=== PATIENT | female | born 1995 | race Two or more races ===

== ENCOUNTER 2017-07-30 07:14 | Inpatient (IN) | payer OTHER ==
[2017-07-30 10:26] LABS: APPEARANCE,URINE CLEAR; BILIRUBIN,URINE NEGATIVE (NEGATIVE); COLOR,URINE YELLOW; GLUCOSE, URINE NEGATIVE (NEGATIVE); KETONES,URINE TRACE mg/dL (NEGATIVE); LEUKOCYTE ESTERASE,URINE NEGATIVE (NEGATIVE); NITRITE,URINE NEGATIVE (NEGATIVE); PROTEIN,URINE NEGATIVE (NEGATIVE); URINE SPECIFIC GRAVITY 1.018; UROBILINOGEN,URINE NEGATIVE mg/dL (<2.0)
[2017-07-30 10:46] LABS: URINE AMPHETAMINES SCREEN NEGATIVE; URINE BARBITURATES SCREEN NEGATIVE; URINE BENZODIAZEPINES SCREEN NEGATIVE; URINE COCAINE SCREEN NEGATIVE; URINE MARIJUANA (THC) SCREEN NEGATIVE; URINE METHADONE SCREEN NEGATIVE; URINE PHENCYCLIDINE SCREEN NEGATIVE
[2017-07-30] MEDS ORDERED: MISOPROSTOL 0.2 MG TABLET ONE (10:49)
[2017-07-30] MEDS ORDERED: EPHEDRINE SULFATE INJ 50 MG/1 ML AMPULE ONE (10:50)
[2017-07-30] MEDS ORDERED: FENTANYL/BUPIVACAINE/NS/PF 200 MCG/100 ML RTUINJ EPI ONE (10:50)
[2017-07-30] MEDS ORDERED: LIDOCAINE 1% INJ-PF (10 MG/ML) 30 ML SDV ONE (10:50)
[2017-07-30] MEDS ORDERED: OXYTOCIN/NORMAL SALINE 20 UNIT/1,000 ML RTUINJ ONE (10:50)
[2017-07-30] MEDS ORDERED: BUPIVACAINE HCL 0.25 % INJ/PF (2.5 MG/1 ML) 30 ML VIAL ONE (10:50)
[2017-07-30 11:20] LABS: HEMATOCRIT 35.9 % (36.0-47.0); HEMOGLOBIN 12.5 g/dL (12.0-15.5); MEAN CORPUSCULAR HEMOGLOBIN 33.9 pg (27.0-33.4); MEAN CORPUSCULAR HGB CONC 34.8 g/dL (32.0-36.0); MEAN CORPUSCULAR VOLUME 97 fl (80-97); PLATELET COUNT 195 10^3/uL (150-450); RED BLOOD COUNT 3.69 10^6/uL (3.72-5.28); RED CELL DISTRIBUTION WIDTH 12.6 % (11.5-14.0); WHITE BLOOD COUNT 12.5 10^3/uL (4.0-10.5)
[2017-07-30] MEDS ORDERED: RINGERS SOLUTION,LACTATED 1,000 ML IV PRN (11:45)
[2017-07-30] MEDS ORDERED: RINGERS SOLUTION,LACTATED 1,000 ML IV ONE (11:45)
--- NOTE | 2017-07-30 13:45 | L&D Progress Notes ---
PROGRESS NOTES Datetime Report Generated by CPN: 07/30/2017 13:45 PROGRESS NOTE Impression: Normal Progression of Labor Procedures: Artificial ROM Plan: Continue Present Management Informed Consent Obtained: Vaginal Delivery; Risks, Benefits and Alternatives Discussed Vital Signs : Reviewed; Within Normal Limits Comment: S: reports complete relief of pain with epidural O: VSS, cervix and contractions as stated A: IUP @ 39w1d in labor-stable, progressing, AROM-heavy meconium noted P: anticipate delivery, nursery to be present due to mec stained fluid. VAGINAL EXAM Dilatation: 7 Dilatation: 4 Effacement: 100 Effacement: 90 Station: -1 Station: -2 Contractions: 3-5 Contractions: 3-4 MEMBRANES Membranes: Ruptured Membranes: Bulging Amniotic Fluid Color: Meconium, Heavy FETUS A FHR - Baseline: 120 Monitoring: External US Variability: Moderate 6-25bpm Accelerations: 15X15 Decelerations: None FHR Category: Category I Presentation: Vertex SIGNATURE SIGNATURE: [id number] Assignment: June Ornelas MD Signature: with User ID: [email or web address] : with User ID: [email or web address]
[2017-07-30] MEDS ORDERED: PROMETHAZINE HCL 25 MG SUPP.RECT PR PRN (18:25)
[2017-07-30] MEDS ORDERED: DIPH/PERTUSS(ACELL)/TETANUS VAC/PF 0.5 ML SYR (>=10YO) IM PRN (18:25)
[2017-07-30] MEDS ORDERED: NA PHOS,M-B/NA PHOS,DI-BA (ADULT) 133 ML ENEMA PR PRN (18:25)
[2017-07-30] MEDS ORDERED: OXYTOCIN/NORMAL SALINE 20 UNIT/1,000 ML RTUINJ IV PRN (18:25)
[2017-07-30] MEDS ORDERED: ACETAMINOPHEN WITH CODEINE #3 TABLET PO PRN ×2 (18:25)
[2017-07-30] MEDS ORDERED: PSEUDOEPHEDRINE HCL 30 MG TABLET PO PRN (18:25)
[2017-07-30] MEDS ORDERED: MEASLES,MUMPS&RUBELLA VACC/PF 0.5 ML VIAL SUBCUT PRN (18:25)
[2017-07-30] MEDS ORDERED: GLYCERIN/WITCH HAZEL LEAF 1 EACH MED..PAD TP PRN (18:25)
[2017-07-30] MEDS ORDERED: MAGNESIUM HYDROXIDE SUSP 30 ML UDCUP PO PRN (18:25)
[2017-07-30] MEDS ORDERED: DIPHENHYDRAMINE HCL 25 MG CAPSULE PO PRN (18:25)
[2017-07-30] MEDS ORDERED: BENZOCAINE/MENTHOL AEROSOL SPRAY 56 ML TOP PRN (18:25)
[2017-07-30] MEDS ORDERED: PROMETHAZINE HCL INJ 25 MG/1 ML VIAL IV PRN (18:25)
[2017-07-30] MEDS ORDERED: ACETAMINOPHEN 650 MG SUPP.RECT PR PRN (18:25)
[2017-07-30] MEDS ORDERED: PROMETHAZINE HCL 25 MG TABLET PO PRN (18:25)
[2017-07-30] MEDS ORDERED: DIBUCAINE 1% OINTMENT 28 GM TP PRN (18:25)
[2017-07-30] MEDS ORDERED: ZOLPIDEM TARTRATE 5 MG TABLET PO PRN (18:25)
--- NOTE | 2017-07-30 18:59 | Delivery Summary ---
Del Sum A-C Datetime Report Generated by CPN: 07/30/2017 18:59 DELIVERY PERSONNEL DELIVERY PERSONNEL: [id number] Delivery Doctor:: Alyssia Randhawa CNM Labor and Delivery Nurse:: Charlene Peterson RN Labor and Delivery Nurse:: Clover Noyola RNC Nursery Nurse:: Raisa Gracia RN Cane Feeder/RELATIONSHIP CONSULTANT: Kasey Redding CNA II Cane Feeder/RELATIONSHIP CONSULTANT: F FREDERIC, ST MATERNAL INFORMATION Delivery Anesthesia: Epidural Medications After Delivery: Pitocin Bolus-Please Comment; Pitocin Drip 20 Units/1000ml NSS Estimated Blood Loss (ml): 825 QBL Maternal Complications: None Provider Comments: Pt. progressed to c/c/+1 with urge to push, began pushing and quickly delivered a viable baby boy. spontaneous respiratory effort at and cry with tactile stimulation (nursery nurse in room for delivery due to heavy mec, terminal mec also noted). Short cord noted, baby held by mother and myself at umbilicus to allow for skin to skin while still attached. Cord allowed to stop pulsating then clamped x2 and cut by FOB. Baby to warmer for further eval. Lacerations as stated. Bleeding stable and fundus firm at u-3. Baby to nursery. Mother remains in room and stable at this tie. LABOR SUMMARY EDC: 08/05/2017 00:00 No. Babies in Womb: 1 Attempted: No Labor Anesthesia: Epidural LABOR INFORMATION Reason for Induction: Not Applicable Onset of Labor: 07/30/2017 03:00 Complete Dilatation: 07/30/2017 16:49 Oxytocin: N/A Group B Beta Strep: NEGATIVE Antibiotics # of Doses: 0 Steroids Given: None Reason Steroids Not Administered: Not Applicable MEMBRANES Membranes Rupture Method: Artificial Rupture of Membranes: 07/30/2017 13:38 Length of Rupture (hr): 3.83 Amniotic Fluid Color: Heavy Meconium Amniotic Fluid Amount: Small Amniotic Fluid Odor: None STAGES OF LABOR Stage 1 hr: 13 Stage 1 min: 49 Stage 2 hr: 0 Stage 2 min: 39 Stage 3 hr: 0 Stage 3 min: 5 Total Time in Labor hr: 14 Total Time in Labor min: 33 VAGINAL DELIVERY Episiotomy: None Laceration #1: Vaginal Laceration Extension #1: N/A Other Laceration: SUPERFICIAL RT LABIAL ABRASION Laceration Repair: Yes Laceration Repair Note: superficial midline laceration that woudn't become hemostatic, sutured with 2-0 chromic and hemostasis achieved. Abrasions noted as stated and hemostatic. Sponge Count Correct: N/A Sharps Count Correct: N/A BABY A INFORMATION Infant Delivery Date/Time: 07/30/2017 17:28 Method of Delivery: Vaginal Born in Route : No : N/A Forceps: N/A Vacuum Extraction: N/A Shoulder Dystocia : No PRESENTATION/POSITION BABY A Presentation: Cephalic Cephalic Presentation: Vertex Vertex Position: Left Occipital Anterior Breech Presentation: N/A PLACENTA INFORMATION BABY A Placenta Delivery Time : 07/30/2017 17:33 Placenta Method of Delivery: Spontaneous Placenta Status: Delivered SCORES BABY A Heart Rate 1 min: >100 bpm Resp Effort 1 min: Slow, Irregular Reflex Irritability 1 min: Cough or Sneeze or Pulls Away Muscle Tone 1 min: Active Motion Color 1 min: Blue/Pale Resuscitation Effort 1 min: Tactile Stimulation SCORE 1 MIN: 7 Heart Rate 5 min: >100 bpm Resp Effort 5 min: Good Cry Reflex Irritability 5 min: Cough or Sneeze or Pulls Away Muscle Tone 5 min: Active Motion Color 5 min: Body [place], Extremities Blue Resuscitation Effort 5 min: Tactile Stimulation; Oxygen; PPV/NCPAP SCORE 5 MIN: 9 INFANT INFORMATION BABY A Gestational Age at Delivery: 39.1 Gestational Status: Full Term- 39- 40.6 Weeks Outcome : Liveborn Condition : Stable Sex: Male IDENTIFICATION BABY A Verification Date/Time: 07/30/2017 17:57 ID Band Number: [id number] Mother's Name Verified: Yes RN Verifying Infant: DONN PETERSON, RN Additional Verifying Personnel: D STEFANY, U/S, RELATIONSHIP CONSULTANT WEIGHT/LENGTH BABY A Birthweight (gm): 3438 Infant Weight (lb): 7 Weight (oz): 9 Length (in): 19.00 Infant Length (cm): 48.26 CORD INFORMATION BABY A No. Cord Vessels: 3 Nuchal Cord : N/A Cord Blood Taken: Yes-For Eval (Mom's Blood Type - or O+) Infant Suction: Mouth; Nose ASSESSMENT BABY A Complications: Multiple Variable Decels; Meconium Physical Findings at Delivery: Molding of the Head Respirations: Intercostal Retractions; Nasal Flaring Skin to Skin: Yes Skin to Skin Time (min): 4 Cutting And Boning Supervisor/ALS Called : No Care By: Gretel GRACIA RN Transferred To: [facility] BABY B INFORMATION : N/A SIGNATURES Assignment: June Ornelas MD Signature: with User ID: Brielle : with User ID: [email or web address]
--- NOTE | 2017-07-30 19:51 | Warning Signs in Babies ---
VOD Warning Signs Datetime Report Generated by [facility]: 07/30/2017 19:51 VOD#608 -Warning Signs in Babies: Viewed with Parent(s)/Family (07/30/2017 07:53:Ness Galicia RN)
--- NOTE | 2017-07-30 21:06 | Admission Physical ---
Datetime Report Generated by CPN: 07/30/2017 21:06 CURRENT ADMISSION Hx Assessment: The History has been Reviewed and is Current Chief Complaint: Uterine Contractions Indication for Induction: Not Applicable Indication for Induction: Term, Intrauterine Admit Plan: Admit to Unit; Initiate Labor Protocol ALLERGIES Medication Allergies: Yes Medication Allergies: caffeine (07/30/2017); aspirin (07/30/2017); acetaminophen (07/30/2017) Medication Allergies: EXCEDRIN Latex: No Latex Allergies Food Allergies: NONE Environmental Allergies: NONE OBSTETRICAL HISTORY EDC: 08/05/2017 00:00 : 1 Para: 0 Term: 0 : 0 SAB: 0 IAB: 0 Ectopic: 0 Livin Cesareans: 0 VBACs: 0 Multiple Births: 0 Gestational Diabetes: No Rh Sensitization: No Incompetent Cervix: No ROSITA: No Infertility: No ART Treatment: No Uterine Anomaly: No IUGR: No Hx Previous C/S: No Macrosomia: No Hx Loss/Stillborn: No PIH: No Hx : No Placenta Previa/Abruption: No Depression/PP Depression: Yes PTL/PROM: No Post Hemorrhage: No Current Procedures: Ultrasound Obstetrical History Comments: CURRENT SEE RECORDS Alcohol: No Marijuana : No Cocaine: No Other Illicit Drugs: No Cigarettes: Never Smoker. [id number] MEDICAL HISTORY Diabetes: No Blood Transfusion: No Pulmonary Disease (Asthma, TB): No Breast Disease: No Hypertension: No Clinical Nursing Instructor Surgery: No Heart Disease: No Hosp/Surgery: No Autoimmune Disorder: No Anesthetic Complications: No Kidney Disease: No Abnormal Pap Smear: No Neuro/Epilepsy: No Psychiatric Disorders: Yes Other Medical Diseases: No Hepatitis/Liver Disease: No Significant Family History: No Varicosities/Phlebitis: No Trauma/Violence : No Thyroid Dysfunction: No Medical History Comments: PANIC ATTACKS, ANXIETY, PTSD, DEPRESSION INFECTIOUS HISTORY Gonorrhea: No Genital Herpes: No Chlamydia: No Tuberculosis: No Syphilis: No Hepatitis: No HIV/AIDS Exposure: No Rash or Viral Illness: No HPV: No PHYSICAL EXAM General: Normal HEENT: Deferred Neurologic: Normal Thyroid: Deferred Heart: Normal Lungs: Normal Breast: Deferred Back: Normal Abdomen: Normal Genitourinary Exam: Normal Extremities: Normal DTRs: Normal Pelvic Type: Adequate Physical Exam Comments: cervix per RN exam Vital Signs: Reviewed; Within Normal Limits VAGINAL EXAM Dilatation: 7 Dilatation: 4 Effacement: 100 Effacement: 90 Station: -1 Station: -2 Contraction Comments: 3-5 Contraction Comments: 3-4 MEMBRANES Membranes: Ruptured Membranes: Bulging Amniotic Fluid Color: Meconium, Heavy FETUS A EGA: 39.1 Monitoring: External US FHR- Baseline: 135 Variability: Moderate 6-25bpm Decelerations: None FHR Category: Category I Presentation: Vertex Admit Comment: 22yo G1 at 39w1d by LMP presented into L_D this am with UC and found to have cervical change after walking. Pt with Late entry to care @ 21w [place] [facility] [place] [facility] [place] [facility] and has only had 5 visits altogether during her . No records of ultrasound and limited anatomy at [facility]. Blood type O pos, Rubella and varicella non-immune, GBS negative. Denies any significant medical hx except for depression but not on meds at this time. Desires epidural for pain relief, will admit and expect delivery. Dr. Ornelas in unit, report given. PLANS FOR LABOR AND DELIVERY Labor and Delivery: None Pain Management: Epidural Feeding Preference: Breast Benefit of Breast Feed Discussed: Yes Circumcision: No INFORMED CONSENT Informed Consent Obtained: Vaginal Delivery; Risks, Benefits and Alternatives Discussed Assignment: June Ornelas MD Signature: with User ID: [email or web address] : with User ID: [email or web address]
[2017-07-30] MEDS: IBUPROFEN 800 MG TABLET PO SCH (21:53)
[2017-07-30] MEDS: FAMOTIDINE 20 MG TABLET PO SCH (21:53)
[2017-07-30] MEDS ORDERED: INFLUENZA ADLT QUAD (36MOS+) 2017-18 VAC 0.5 ML SYR IM PRN (23:01)
[2017-07-31 08:22] LABS: HEMATOCRIT 31.3 % (36.0-47.0); HEMOGLOBIN 10.9 g/dL (12.0-15.5); MEAN CORPUSCULAR HEMOGLOBIN 34.1 pg (27.0-33.4); MEAN CORPUSCULAR HGB CONC 34.8 g/dL (32.0-36.0); MEAN CORPUSCULAR VOLUME 98 fl (80-97); PLATELET COUNT 178 10^3/uL (150-450); RED BLOOD COUNT 3.19 10^6/uL (3.72-5.28); RED CELL DISTRIBUTION WIDTH 12.8 % (11.5-14.0); WHITE BLOOD COUNT 12.1 10^3/uL (4.0-10.5)
[2017-07-31] MEDS: IBUPROFEN 800 MG TABLET PO SCH ×3 (09:38→21:27)
[2017-07-31] MEDS: PRENATAL VITAMIN W DHA CAPSULE PO SCH (09:38)
[2017-07-31] MEDS: FERROUS SULFATE 325 MG TABLET PO SCH ×2 (09:54→17:26)
[2017-07-31] MEDS: SENNOSIDES/DOCUSATE 8.6-50 MG 1 EACH TABLET PO SCH (09:55)
[2017-07-31] MEDS: FAMOTIDINE 20 MG TABLET PO SCH ×2 (09:55→21:27)
[2017-07-31] MEDS: DOCUSATE SODIUM 100 MG CAPSULE PO SCH ×2 (09:55→17:26)
--- NOTE | 2017-07-31 11:54 | PDOC PROGRESS REPORT ---
Subjective-OB Progress Note for:: 07/31/17 Subjective: tolerating diet, reports bleeding slowing, pain controlled with current meds. no current needs. Physical Exam (OB) Vital Signs: Temp Pulse Resp BP Pulse Ox 98.6 F 81 16 113/72 100 07/31/17 08:09 07/31/17 08:09 07/31/17 08:09 07/31/17 08:09 07/31/17 08:09 Intake & Output 07/30/17 07/31/17 08/01/17 06:59 06:59 06:59 Weight 70.3 kg - Abdomen Description: Soft Hernia Present: No Fundal Description: Firm, Midline Fundal Height: u/u - u/2 - Abdominal Tenderness: Nontender - Extremities Lower extremities: Sav's sign - neg Calf: Normal, Nontender Objective-Diagnostic Laboratory: 07/31/17 08:07 07/30/17 07/31/17 11:08 08:07 WBC 12.1 H RBC 3.19 L Hgb 10.9 L Hct 31.3 L MCV 98 H MCH 34.1 H MCHC 34.8 RDW 12.8 Plt Count 178 Blood Type O POSITIVE Antibody Screen NEGATIVE Assessment and Plan(PN) - Assessment and Plan (1) Normal vaginal delivery Is this a current diagnosis for this admission?: Yes - Time Spent with Patient Time with patient: Less than 15 minutes - Disposition Anticipated Discharge: Home Within: within 24 hours
[2017-08-01 08:41] VITALS: BP 109/68
--- NOTE | 2017-08-01 08:54 | PDOC PROGRESS REPORT ---
Subjective-OB Progress Note for:: 08/01/17 Subjective: Sitting up in bed with baby, no c/o, bottle feeding, voiding, ambulating Physical Exam (OB) Vital Signs: Temp Pulse Resp BP Pulse Ox 98.4 F 77 16 109/68 98 08/01/17 08:40 08/01/17 08:40 08/01/17 08:40 08/01/17 08:40 08/01/17 08:40 Intake & Output 07/31/17 08/01/17 08/02/17 06:59 06:59 06:59 Weight 70.3 kg - PIH/Pre-Eclampsia Clonus: Negative Headache: Absent Epigastric Pain: No Visual Changes: No - Lochia Lochia Amount: Scant < 10 ml Lochia Color: Rubra/Red - Abdomen Description: Soft, Round Hernia Present: No Fundal Description: Firm Fundal Height: u/u - u/2 Objective-Diagnostic Laboratory: 07/31/17 08:07 Assessment and Plan(PN) - Assessment and Plan (1) Normal vaginal delivery Is this a current diagnosis for this admission?: Yes - Time Spent with Patient Time with patient: Less than 15 minutes Medications reviewed and adjusted accordingly: Yes - Disposition Anticipated Discharge: Home Within: Other - home today
--- NOTE | 2017-08-01 09:02 | PDOC DISCHARGE SUMMARY ---
Final Diagnosis Discharge Date: 08/01/17 - Final Diagnosis (1) Normal vaginal delivery Is this a current diagnosis for this admission?: Yes Discharge Data - Discharge Medication Home Medications: Vit/Iron Fum/Folic AC [ Tablet] 1 tab PO DAILY 07/30/17 Gestational Age: 39.1 Reason(s) for Admission: Onset of Labor Procedures: NST, Ultrasound Intrapartum Procedure(s): Spontaneous Vaginal Delivery Complication(s): Laceration-Labial Laceration-Degree: 1st - Data Baby 1 Male at 1 minute: 7 at 5 minutes: 9 Weight: 3.43 kg Home with Mother: Yes Complications: No - Diagnosis Test Laboratory: Temp Pulse Resp BP Pulse Ox 98.4 F 77 16 109/68 98 08/01/17 08:40 08/01/17 08:40 08/01/17 08:40 08/01/17 08:40 08/01/17 08:40 07/30/17 07/30/17 07/30/17 07:25 09:50 11:08 RBC 3.69 L Hgb 12.5 Hct 35.9 L Urine Opiates Screen Cancelled NEGATIVE 07/31/17 08:07 RBC 3.19 L Hgb 10.9 L Hct 31.3 L Urine Opiates Screen - Discharge information/Instructions Discharge Activity: Activity As Tolerated, Pelvic Rest Discharge Diet: As Tolerated, Regular Disposition: HOME, SELF-CARE Follow up with: [facility] in: 4, Weeks
[2017-08-01] MEDS: SENNOSIDES/DOCUSATE 8.6-50 MG 1 EACH TABLET PO SCH (09:31)
[2017-08-01] MEDS: FAMOTIDINE 20 MG TABLET PO SCH (09:31)
[2017-08-01] MEDS: PRENATAL VITAMIN W DHA CAPSULE PO SCH (09:31)
[2017-08-01] MEDS: DOCUSATE SODIUM 100 MG CAPSULE PO SCH (09:31)
[2017-08-01] MEDS: FERROUS SULFATE 325 MG TABLET PO SCH (09:32)
[2017-08-01] MEDS: IBUPROFEN 800 MG TABLET PO SCH (09:34)
== END 2017-08-01 10:55 | disposition home or self-care (01) | DRG 775 ==
LOC: LC 07:14 → LR 10:17 → 2N 21:04
PROVIDERS: ADMIT Obstetrics & Gynecology; ATTEND Obstetrics & Gynecology
PROC: 10E0XZZ Delivery of Products of Conception, External Approach (ICD-10-PCS; principal; 2017-07-30)
PROC: 0UQMXZZ Repair Vulva, External Approach (ICD-10-PCS; 2017-07-30)
PROC: 10907ZC Drainage of Amniotic Fluid, Therapeutic from Products of Conception, Via Natural or Artificial Opening (ICD-10-PCS; 2017-07-30)
PROC: 4A1HXCZ Monitoring of Products of Conception, Cardiac Rate, External Approach (ICD-10-PCS; 2017-07-30)
DX: O77.0 Labor and delivery complicated by meconium in amniotic fluid (principal); O99.344 Other mental disorders complicating childbirth; O70.0 First degree perineal laceration during delivery; F32.9 Major depressive disorder, single episode, unspecified; F41.0 Panic disorder [episodic paroxysmal anxiety]; F43.10 Post-traumatic stress disorder, unspecified; Z88.6 Allergy status to analgesic agent; Z3A.39 39 weeks gestation of pregnancy; Z37.0 Single live birth
CPT/HCPCS: 36415; 59025; 80307; 81005; 85027; 86592; 86850; 86900; 86901; 88307; J2590; J3490

== ENCOUNTER 2019-07-07 08:19 | Day surgery (SDC) | payer OTHER ==
[~2019-07-07 08:19] MED LIST: DEXAMETHASONE SOD PHOS INJ 10 MG/1 ML VIAL ONE; FAMOTIDINE INJ/PF 20 MG/2 ML SDV IV ONE; FENTANYL CITRATE INJ/PF 100 MCG/2 ML AMPUL ONE; GLYCOPYRROLATE INJ 0.4 MG/2 ML VIAL ONE; LIDOCAINE 2% INJ-PF (100 MG/5 ML) SYRINGE ONE; MIDAZOLAM 2 MG/2 ML INJ ONE; ONDANSETRON HCL INJ/PF 4 MG/2 ML SDV ONE; PROPOFOL INJ 200 MG/20 ML VIAL IV ONE; SUCCINYLCHOLINE CHLORIDE INJ 200 MG/10 ML VIAL ONE
[2019-07-07] MEDS ORDERED: BUPIVACAINE HCL 0.5%/EPI 1:200000 INJ 1.8 ML CARTRIDGE ONE (10:22)
--- NOTE | 2019-07-19 08:30 | Operative Report ---
Operative Report-[facility] Operative Report: DATE OF OPERATION: July 07, 2019 PREOPERATIVE DIAGNOSIS: 1. Acute recurrent tonsillitis 2. Chronic tonsillitis 3. Tonsil stones POSTOPERATIVE DIAGNOSIS: 1. Acute recurrent tonsillitis 2. Chronic tonsillitis 3. Tonsil stones PROCEDURE: 1. Bilateral tonsillectomy patient age greater than 12 Primary Surgeon of Record: Dr. Jimbo Buchanan ASSISTANT BRAND MANAGER: None Anesthesia Staff: GLORY Keyes ANESTHESIA: General Endotracheal Tube Anesthesia DRAINS: None SPONGE COUNT: Verified Needle Count: N/A SPECIMEN/MATERIALS FORWARD TO THE LAB: 1. Left and Right Tonsillar Tissue ESTIMATED BLOOD LOSS: 5 mL IV FLUIDS: 600 mL COMPLICATIONS: None Findings: 1. Tonsils were 2-3+ in size, were highly cryptic in nature, and there was tonsillar debris present bilateral. 2. The soft palatal tissues were redundant in nature and the uvula was unremarkable in appearance. INDICATIONS: This is a 24-year-old female patient who was seen and evaluated in the [place] otolaryngology office. The patient had been referred for and she complained of a history of acute recurrent tonsillitis episodes requiring antibiotics each year over the years. She experiences significant sore throat discomfort, poor p.o. intake, and fevers, and difficulty with sleep with episodes. The patient also experiences chronic tonsillitis symptoms over the years with recurrent tonsil stones and history consistent with keratosis pharyngeus. After extensive discussion with the patient the recommendation and plan was to proceed with a tonsillectomy. The procedure and all of the risks and complications were all discussed in detail with the patient. She voiced an understanding of the described surgical plan, were in agreement, and consent was obtained. DESCRIPTION OF OPERATIVE PROCEDURE: The patient was taken to the main operating room and was placed on the operating room table in the supine position. Appropriate monitors were placed. Using mask and IV access general anesthesia was induced. The patient was next transorally intubated without difficulty. The table was then rotated 90 and the patient was positioned and prepped for tonsil surgery. The lips, teeth, tongue, and gums were inspected and noted to be without defect. The patient had a mouth gag inserted. It was opened and the patient was placed into suspension. There was a soft catheter passed through the nose that was used to suspend the soft palate. Findings are as noted above. At this point Marcaine with epinephrine was injected throughout the peritonsillar areas to establish tonsil blocks. The plasma J-hook device was used to dissect and remove the tonsils from the tonsillar fossae without difficulty. This was also used to provide adequate hemostasis. Normal saline irrigation was performed and was suctioned. Adequate hemostasis was noted. The soft catheter was released and removed from the patients nose. The patient was next released from suspension and the mouth gag was closed. It was opened again and there was again no bleeding noted. It was then removed from the patient's mouth without difficulty. There was no damage to the lips, teeth, tongue, or gums noted. The patient was then returned to the anesthesia staff and was allowed to emerge from general anesthesia. The patient was extubated in the operating room and was transported to the post anesthesia recovery unit in stable condition. There were no complications.
== END 2019-07-07 12:32 | disposition home or self-care (01) ==
LOC: SC 08:19
PROVIDERS: ATTEND Otolaryngology
DX: J35.01 Chronic tonsillitis (principal); J03.91 Acute recurrent tonsillitis, unspecified; J35.8 Other chronic diseases of tonsils and adenoids
CPT/HCPCS: 88304 ×2; 00170; 42826; J2250; J3490; J3010; J2001; J0330; J2405; J2704; S0028; J1100; 170